=== PATIENT | female | born 1985 | race Caucasian/White ===

== ENCOUNTER 2017-11-24 21:00 | Emergency (ER) | payer BC, SELFPAY ==
[2017-11-24 21:00] VITALS: BP 91/64; PULSE 109; RESP 14; TEMP 36.8; O2SAT 97; BMI 24.8
--- NOTE | 2017-11-24 21:24 | EKG12_ITS ---
Test Reason : DEHYDRATION Blood Pressure : / mmHG Vent. Rate : 082 BPM Atrial Rate : 082 BPM P-R Int : 112 ms QRS Dur : 090 ms QT Int : 368 ms P-R-T Axes : 038 056 046 degrees QTc Int : 429 ms Normal sinus rhythm Nonspecific ST segment abnormality Confirmed by ANÍBAL MEDINA, SUNI ([id number]), editorial clerk RAMESH YOON ([id number] on 11/28/2017 1:11:25 PM Referred By: EMY Confirmed By:SUNI SPANGLER MD
[2017-11-24 21:32] VITALS: BP 102/67; BP 97/68; BP 99/66; PULSE 111; PULSE 86; PULSE 94
[2017-11-24] MEDS: proMETHazine 25 MG/ML Syringe 12.5 MG IV (21:42)
[2017-11-24] MEDS: 0.9% Normal Saline 1,000 ML 1000 ML IV ×2 (21:42)
--- NOTE | 2017-11-24 21:43 | ED.RN ---
NO OLD EKG'S IN MUSE
[2017-11-24 22:05] LABS: Absolute Lymphocyte Count 0.38 X10^3/ul (0.83-4.51); Absolute Neutrophil Count 6.9 X10^3/uL (2.0-7.7); Basophil# 0.01 X10^3/uL; Basophil% 0.1 % (0-1); Eosinophil# 0.04 X10^3/uL; Eosinophils% 0.5 % (0-5); Hematocrit 41.6 % (37-47); Hemoglobin 13.7 g/dl (12.0-15.0); Lymphocyte # 0.38 X10^3/ul (4.0); Lymphocyte % 5.1 % (19-41); Mean Corp Hgb Conc 32.9 g/gl (32-36); Mean Corpuscular Hgb 29.8 pg (27.0-32.0); Mean Corpuscular Volume 90.4 fL (81-99); Monocyte# 0.22 X10^3/uL; Monocyte% 2.9 % (0-10); Neutrophil # 6.87 X10^3/uL (2.7-7.7); Neutrophil % 91.4 % (47-70); POSITIVE COUNT NO; POSITIVE DIFFERENTIAL YES; Platelet Count 188 K/mm3 (150-450); RBC Distribution Width CV 12.5 % (11.6-14.6); RBC Distribution Width SD 41.4 fl (35.1-43.9); White Blood Count 7.5 K/mm3 (4.4-11.0)
[2017-11-24 22:06] LABS: Differential Indicated SCAN CRITERIA MET; POSITIVE MORPHOLOGY NO
[2017-11-24 22:09] VITALS: TEMP 37
[2017-11-24 22:09] LABS: Anion Gap 6 (5-15); BUN 9 mg/dL (7-18); BUN/Creat Ratio 10.1 RATIO (10-20); Calcium,Total 8.7 mg/dL (8.5-10.1); Chloride 103 mmol/L (98-107); Creatinine, Serum 0.89 mg/dL (0.55-1.02); EST Glomerular Filtration Rate 78 mL/min (>60); Est Glom Filt Rate - Afr Amer 94 mL/min (>60); Estimated Creatinine Clearance 87.43 ml/min; Glucose 152 mg/dL (74-106); Potassium 3.7 mmol/L (3.5-5.1); Sodium Level 135 mmol/L (136-145)
[2017-11-24 22:23] LABS: Pregnancy, Serum, hCG Quali. NEGATIVE Negative (0-9 Nonpreg)
--- NOTE | 2017-11-24 23:09 | ED.VISSUMM ---
- ER Visit Summary Date of Service: 11/24/17 Chief Complaint: Nausea, diarrhea History of Present Illness: The patient is a 32 F who presents with nausea and diarrhea. She has been ill for about 12 hours. She reports 5 episodes of diarrhea during that time. She reports nausea without vomiting. She complains of intermittent mild diffuse abdominal cramping although she has no pain currently at the time of history. She also complains of muscle aches joint aches and chills although not documented fevers. She denies chest pain shortness of breath cough vomiting. Physical Examination: Initial blood pressure 91/64 heart rate 109 vitals otherwise normal Moist mucous members Heart regular rhythm slightly tachycardic Lungs are clear Abdomen soft nondistended she has some mild diffuse tenderness but no guarding no rebound she does not appear to have a surgical abdomen Alert Test Results: EKG shows sinus rhythm at a rate of 82. CBC BMP normal. negative. Orthostatic vital signs were positive. Emergency Department Course and Treatment: Patient was treated with 2 L of IV fluids and Phenergan. On reevaluation she reports a dramatic improvement. Her nausea is improved. Her heart rate is normal. She was able to ambulate to the bathroom without assistance. I do believe this is most likely related to a viral syndrome. She was advised to follow-up with her primary care physician. She understands to return for new or worsening symptoms and was instructed on specific signs and symptoms to monitor for and she was discharged home. Treatment Plan: [] Disposition: Discharge Impression: Diarrhea Myalgias Nausea This note was generated with [employer] dictation software. It may contain incorrect words, spelling, and punctuation that were not noted in review of the chart prior to signing ED Disposition - Plan for ED Patient: Chief Complaint: Nausea/Vomiting/Diarrhea Referrals: Sae Bolton DO [Primary Care Provider] -
--- NOTE | 2017-11-24 23:11 | ED.DEP ---
ED Disposition - Plan for ED Patient: Chief Complaint: Nausea/Vomiting/Diarrhea Instructions: ED Food Poison Or Gastroenteritis Prescriptions: Ondansetron [Zofran Odt] 4 mg PO Q8H PRN PRN #10 tab PRN Reason: Nausea Referrals: Sae Bolton DO [Primary Care Provider] -
[2017-11-24 23:21] VITALS: BP 98/60; PULSE 71; RESP 16; O2SAT 100
[2017-11-24] MEDS: Ondansetron ODT 4 MG Tablet PO (23:41)
== END 2017-11-24 23:23 | disposition home or self-care (01) ==
LOC: ED 21:36
PROVIDERS: Emergency Provider Emergency Medicine; Family Provider Student in an Organized Health Care Education/Training Program; PCP Student in an Organized Health Care Education/Training Program
DX: R19.7 Diarrhea, unspecified (principal); R11.0 Nausea; R10.9 Unspecified abdominal pain; M79.1 Myalgia; L40.9 Psoriasis, unspecified
CPT/HCPCS: 80048; 84703; 85025; 93005; 96361; 96374; 99284; J7030; A4216

== ENCOUNTER → 2018-01-29 15:42 | Outpatient (CLI) | payer BC, SELFPAY | PROVIDERS: Family Provider Student in an Organized Health Care Education/Training Program; PCP Student in an Organized Health Care Education/Training Program; Referring Provider Otolaryngology Otolaryngology/Facial Plastic Surgery; Visit Provider Otolaryngology Otolaryngology/Facial Plastic Surgery | DX: J02.9 Acute pharyngitis, unspecified (principal) | CPT/HCPCS: 87070 ==

== ENCOUNTER → 2018-03-31 14:34 | Outpatient (CLI) | payer BC, SELFPAY ==
--- OUTSIDE RECORDS SUMMARY | 2018-05-27 06:25 | XMS RPT_ITS ---
:1985 Author Organization OHIP Care Team Providers Name Role Phone REBECCA GOETZ ([facility]) Attending Unavailable SAE TA Attending Unavailable DOCTOR, OUT OF TOWN Attending Unavailable Yuval Roberts Primary Care Unavailable Devin Pedroza Attending Unavailable Sae Ta Primary Care Unavailable Maco Tom Attending Unavailable Maco Tom Referring Unavailable Sae Ta Primary Care Unavailable Mychal Steen Attending Unavailable PROBLEMS PROBLEMS DATE TYPE CONDITION / CODE ATTENDING STATUS SOURCE 03/31/2018 Unknown Z12.4 - Mychal Steen Encounter for Community screening for Hospital malignant Repository neoplasm of cervix / Z12.4(ICD-10) PROCEDURES PROCEDURES No Procedure Records FoundRESULTS RESULTS PAP I-G HPV HI Collected: 03/31/2018 Status: F Source: YAN RISK 10:10 AM [facility] REPOSITORY Order Comment: CYTOLOGY INFORMATION: - CLINICAL INFORMATION: - DATE LMP/MENOPAUSE: 03/03/18 LMP - COLLECTION VIAL: Thin Prep Vial - ASSISTED LIVING COORDINATOR SOURCE: CERVICAL/ENDOCERVICAL - COLLECTION TECHNIQUE: BRUSH/SPATULA TYPE CODE TESTS RESULT OUT OF RANGE REFERENCE UNITS LAB L7400.0800 Normal DIAGN Result Comment: EPITHELIAL CELL ABNORMALITY. ATYPICAL SQUAMOUS CELLS OF UNDETERMINED SIGNIFICANCE LAB L7400.0900 Normal ADEQ Result Comment: Satisfactory for evaluation. Endocervical and/or squamous metaplastic cells (endocervical component) are present. LAB L7400.0940 Normal CLIN PROV. R87.610 ICD9 LAB L7400.1300 Normal RECOMM Result Comment: Suggest follow up as clinically appropriate. LAB L7400.1400 Normal PERFORM Result Comment: Performed by Janiya Gonzalez, Supervisory Independent Producer (ASCP) Electronically signed by Suraj Weaver MD, Pathologist LAB L7400.2575 Normal TEST METHOD Result Comment: This liquid based ThinPrep(R) pap test was screened with the use of an image guided system. LAB L7400.2600 Normal COMM Result Comment: The pap smear is a screening test designated to aid in the detection of pre-malignant and malignant conditions of the uterine cervix. It is not a diagnostic procedure and should not be used as the sole means of detecting cervical cancer. Both false-positive and false-negative reports do occur. LAB L7400.2950 Normal HPV HC,HGH RISK Result Comment: Low sample cellularity may be the cause. See HPV, low volume rfx test result. This high-risk HPV test detects thirteen high-risk types (16/18/31/33/35/39/45/51/52/56/58/59/68) without differentiation. HPV, high-risk The quantity of specimen remaining in the vial after Pap slide preparation was less than the 4 mL minimum cell suspension required. HPV, low volume rfx Negative Performed By: #### L7400.0375 #### [facility] (refer to report for specific site) refer to report for address and phone number PROGRESS Observed: 03/25/2018 Status: COMPLETED Source: [place] 10:15 AM [facility] REPOSITORY HNO ID: [id number] Author: Sae Ta Service: (none) Author Type: Physician Type: Progress Notes Filed: 03/25/2018 11:19 AM Note Text: CC: Alanna Yusuf is a 32 year old female who presents to the office for physical HPI: Overall is doing well, Feels as if she is struggling somewhat with anxiety symptoms, comes and goes, depending on the trigger. Is working on self reflection with this, has been in talk therapy in the past with improvement as well, is considering restarting this. Not really interested in medications, denies depression or irritability or sleep or appetite changes. Overall tries to eat a very healthy diet and exercises regularly to help with mgmt of symptoms as well. PAST MEDICAL HISTORY Diagnosis Date - Environmental allergies - Psoriasis - Syncope 2003, 2010,2013 Blacked out at work while sitting at desk. PAST SURGICAL HISTORY Procedure Laterality Date - COLONOSCOP W/ OR W/O [facility] SPEC 02/24/2017 biopsies negative - REMOVE TONSILS/ADENOIDS,<12 Y/O 2003 Social History: Social History Substance Use Topics - Smoking status: Never Smoker - Smokeless tobacco: Never Used - Alcohol use No FAMILY HISTORY Problem Relation Age of Onset - None Mother - Cancer Father 33 Hodgkins - other (healthy) Daughter - other (healthy) Son Current Outpatient prescriptions: Drospirenone-Ethinyl Estradiol (BALDOMERO 28) 3-0.02 mg per tablet Take 1 tablet by mouth once daily. prednisoLONE Sodium Phosphate 20 mg/5 mL (4 mg/mL) soln Take 10-40 mg by mouth as directed. 40mg daily for 3 days, then 20mg daily for 3 days then 10 mg daily for 3 days MULTIVITAMIN TAB Take one(1) tablet daily. vitamins ibuprofen (MOTRIN) 200 mg tablet Take 200 mg by mouth every 6 hours as needed. Allergies: ALLERGIES Allergen Reactions - Amoxicillin Hives - Augmentin [Amoxicil* Hives - Azithromycin Diarrhea GENERIC ONLY - Ceclor [Cefaclor] Hives ROS: See HPI PE: 03/25/18 1009 BP: 116/80 Pulse: 80 Resp: 16 Temp: 36.1 ?C (97 ?F) TempSrc: Left Tympanic Weight: 71.7 kg (158 lb) Height: 170.2 cm (5' 7) Gen: AANDO, NAD, non-toxic appearing, Pleasant, cooperative HEENT: NT/AC, PERRLA, EOMs intact b/l, nares clear and patent b/l, pharynx without erythema, exudate or lesions. Uvula midline. EACs without erythema or debris. TMs pearly montaño with intact landmarks b/l. Neck: supple, No cervical LAD, no thyromegaly, no carotid bruits CV: RRR, normal S1 and S2, no murmurs, no gallops, no rubs, Pulses 2+ and symmetric in UE and LE b/l Lungs: normal respiratory effort, CTA b/l, no wheezing or rhonchi or rales Abd: soft, NT, ND, +BS, no hepatosplenomegaly MS: FROM all 4 extremities Neuro: CN II-XII intact b/l, strength 5/5 b/l UE and LE, DTRs 2/4 UE and LE, sensation intact. Skin: warm, dry, intact, scattered mild psoriasis. ASSESSMENT/PLAN: 1. Well adult exam - ICD9: V70.0, ICD10: Z00.00 (primary diagnosis) - Encouraged monthly Breast Self Exam - Recommended calcium intake with supplements or by diet (goal of 8847-3032 mg/day - Follow up for annual exam in one year. - VITAMIN D 25 HYDROXY - TSH BLD - CBC - COMP METABOLIC PANEL - C-REACTIVE PROTEIN (CRP) 2. Anxiety - ICD9: 300.00, ICD10: F41.9 - given GHULAM 7 scale today, given resources locally for therapy/counseling to consider, she is possibly interested in Valerian root supplement etc. Sae Ta DO To ER if develops chest pain, shortness of breath, or severe worsening of symptoms. Discussed risks, benefits, alternatives, and potential side effects of medications. Patient expressed understanding and agreed with the plan. Sae Ta DO [address] [place] [address] GEORGETTE Observed: 03/25/2018 Status: COMPLETED Source: [place]ERNARD 10:00 AM [facility] REPOSITORY Office Visit (FAMPWS) ALANNA YUSUF ([id number]) 1985 F Date Time Provider Department 03/25/18 10:00 AM SAE TA During your visit today, we recorded the following information about you: Temperature Pulse Respiration Blood pressure 97 degrees 80/minute 16/minute 116/80 Weight Height Last Period 71.7 kg 1.702 m 03/04/18 Sae Ta DO 03/25/2018 11:19 AM Signed CC: Alanna Yusuf is a 32 year old female who presents to the office for physical HPI: Overall is doing well, Feels as if she is struggling somewhat with anxiety symptoms, comes and goes, depending on the trigger. Is working on self reflection with this, has been in talk therapy in the past with improvement as well, is considering restarting this. Not really interested in medications, denies depression or irritability or sleep or appetite changes. Overall tries to eat a very healthy diet and exercises regularly to help with mgmt of symptoms as well. PAST MEDICAL HISTORY Diagnosis Date - Environmental allergies - Psoriasis - Syncope 2003, 2010,2013 Blacked out at work while sitting at desk. PAST SURGICAL HISTORY Procedure Laterality Date - COLONOSCOP W/ OR W/O [facility] SPEC 02/24/2017 biopsies negative - REMOVE TONSILS/ADENOIDS,<12 Y/O 2003 Social History: Social History Substance Use Topics - Smoking status: Never Smoker - Smokeless tobacco: Never Used - Alcohol use No FAMILY HISTORY Problem Relation Age of Onset - None Mother - Cancer Father 33 Hodgkins - other (healthy) Daughter - other (healthy) Son Current Outpatient prescriptions: Drospirenone-Ethinyl Estradiol (BALDOMERO 28) 3-0.02 mg per tablet Take 1 tablet by mouth once daily. prednisoLONE Sodium Phosphate 20 mg/5 mL (4 mg/mL) soln Take 10-40 mg by mouth as directed. 40mg daily for 3 days, then 20mg daily for 3 days then 10 mg daily for 3 days MULTIVITAMIN TAB Take one(1) tablet daily. vitamins ibuprofen (MOTRIN) 200 mg tablet Take 200 mg by mouth every 6 hours as needed. Allergies: ALLERGIES Allergen Reactions - Amoxicillin Hives - Augmentin [Amoxicil* Hives - Azithromycin Diarrhea GENERIC ONLY - Ceclor [Cefaclor] Hives ROS: See HPI PE: 03/25/18 1009 BP: 116/80 Pulse: 80 Resp: 16 Temp: 36.1 ?C (97 ?F) TempSrc: Left Tympanic Weight: 71.7 kg (158 lb) Height: 170.2 cm (5' 7) Gen: AANDO, NAD, non-toxic appearing, Pleasant, cooperative HEENT: NT/AC, PERRLA, EOMs intact b/l, nares clear and patent b/l, pharynx without erythema, exudate or lesions. Uvula midline. EACs without erythema or debris. TMs pearly montaño with intact landmarks b/l. Neck: supple, No cervical LAD, no thyromegaly, no carotid bruits CV: RRR, normal S1 and S2, no murmurs, no gallops, no rubs, Pulses 2+ and symmetric in UE and LE b/l Lungs: normal respiratory effort, CTA b/l, no wheezing or rhonchi or rales Abd: soft, NT, ND, +BS, no hepatosplenomegaly MS: FROM all 4 extremities Neuro: CN II-XII intact b/l, strength 5/5 b/l UE and LE, DTRs 2/4 UE and LE, sensation intact. Skin: warm, dry, intact, scattered mild psoriasis. ASSESSMENT/PLAN: 1. Well adult exam - ICD9: V70.0, ICD10: Z00.00 (primary diagnosis) - Encouraged monthly Breast Self Exam - Recommended calcium intake with supplements or by diet (goal of 5090-3355 mg/day - Follow up for annual exam in one year. - VITAMIN D 25 HYDROXY - TSH BLD - CBC - COMP METABOLIC PANEL - C-REACTIVE PROTEIN (CRP) 2. Anxiety - ICD9: 300.00, ICD10: F41.9 - given GHULAM 7 scale today, given resources locally for therapy/counseling to consider, she is possibly interested in Valerian root supplement etc. Sae Ta DO To ER if develops chest pain, shortness of breath, or severe worsening of symptoms. Discussed risks, benefits, alternatives, and potential side effects of medications. Patient expressed understanding and agreed with the plan. Sae Ta DO [address] [place] [address] Sae Ortega Ta, 03/25/2018 10:57 AM Signed Light box 10,000 LUX strength, pineal gland/amygdala for mood, 20-30 minutes a day in the morning [employer], 400-800 mg a day in the evening. Referring Provider: SELF [200] Allergies As of Date: 03/25/2018 Noted Allergy Reaction AMOXICILLIN 04/30/2005 4 - Hives AUGMENTIN (AMOXICILLIN-POT CLAVUL*04/30/2005 4 - Hives AZITHROMYCIN 07/02/2014 6 - Diarrhea Comments: GENERIC ONLY CECLOR (CEFACLOR) 05/02/2005 4 - Hives Date Reviewed: 03/25/2018 Reviewed by: Syl Joseph LPN - Fully Assessed Reason for Visit: Physical [83] Primary Visit Diagnosis:Well adult exam [Z00.00] Other Visit Diagnosis:Anxiety [F41.9] Order(s):VITAMIN D 25 HYDROXY [SQVITD] Order #: [id number] FUTURE TSH BLD [SQTSH] Order #: [id number] FUTURE CBC [SQCBC] Order #: [id number] FUTURE COMP METABOLIC PANEL [SQCMP] Order #: [id number] FUTURE C-REACTIVE PROTEIN (CRP) [SQCRP] Order #: [id number] FUTURE Prescriptions as of 03/25/2018 Sig: DROSPIRENONE 3 MG-ETHINYL EST* Take 1 tablet by mouth once d* PREDNISOLONE SODIUM PHOSPHATE* Take 10-40 mg by mouth as dir* MULTIVITAMIN TABLET Take one(1) tablet daily. Pr* IBUPROFEN 200 MG TABLET Take 200 mg by mouth every 6 * Problem List As Of Date 03/25/2018 Noted Resolved Abdominal pain, unspecified site [R10.9] INVALID FOR*04/30/2012 Bright red rectal bleeding [K62.5] INVALID FOR* More... Altered bowel habits [R19.4] INVALID FOR* More... Gluten intolerance [K90.41] INVALID FOR* Thyromegaly [E01.0] INVALID FOR* Well adult exam [Z00.00] INVALID FOR* Anxiety [F41.9] INVALID FOR* Other instructions from your clinician: Light box 10,000 LUX strength, pineal gland/amygdala for mood, 20-30 minutes a day in the morning Valerian root, [employer] store, 400-800 mg a day in the evening. Encounter Status:Closed by SAE TA DO on 03/25/18 PROGRESS Observed: 02/19/2018 Status: COMPLETED Source: [place] 9:32 AM [facility] REPOSITORY HNO ID: [id number] Author: Rebecca Ortega (Miko) Sofy Service: (none) Author Type: Nurse Practitioner Type: Progress Notes Filed: 02/19/2018 9:44 AM Note Text: HPI/CC: Alanna Yusuf is a 32 year old female who presents for Arm Pain (L arm pain since receiving flu shot on 01/31). Pain radiating down left arm, tenderness to injection site and surrounding skin. Injection site is discolored- no erythema, slightly edematous. Denies fevers, chills, difficulty swallowing, difficulty breathing, redness, warmth to palpation, numbness or tingling. Attempted NSAIDs with some relief. ROS as above, otherwise non-contributory. Reviewed PMHx, PSHx, social Hx, medications and allergies. PHYSICAL EXAMINATION: Blood pressure 92/62, pulse 64, resp. rate 16, weight 73.5 kg (162 lb). General appearance: Well appearing, alert, in no acute distress, well-hydrated, well nourished. Skin: Skin color, texture, turgor normal, no suspicious rashes or lesions Extremities: Positive findings: right UE with TTP at and around injection site, slight edema, no warmth or erythema noted. ASSESSMENT/PLAN: 1. Allergic reaction, initial encounter - ICD9: 995.3, ICD10: T78.40XA - PREDNISOLONE SODIUM PHOSPHATE 20 MG/5 ML (4 MG/ML) ORAL SOLUTION - allergy consult Rebecca Goetz APRN.CNP CNOV Observed: 02/19/2018 Status: COMPLETED Source: [place] 9:20 AM [facility] REPOSITORY Office Visit (FAMPWS) ALANNA YUUSF ([id number]) 1985 F Date Time Provider Department 02/19/18 9:20 AM REBECCA GOETZ (MIKO) ALY During your visit today, we recorded the following information about you: Pulse Respiration Blood pressure Weight 64/minute 16/minute 92/62 73.5 kg Rebecca Goetz APRN.CNP 02/19/2018 9:44 AM Signed HPI/CC: Alanna Yusuf is a 32 year old female who presents for Arm Pain (L arm pain since receiving flu shot on 01/31). Pain radiating down left arm, tenderness to injection site and surrounding skin. Injection site is discolored- no erythema, slightly edematous. Denies fevers, chills, difficulty swallowing, difficulty breathing, redness, warmth to palpation, numbness or tingling. Attempted NSAIDs with some relief. ROS as above, otherwise non-contributory. Reviewed PMHx, PSHx, social Hx, medications and allergies. PHYSICAL EXAMINATION: Blood pressure 92/62, pulse 64, resp. rate 16, weight 73.5 kg (162 lb). General appearance: Well appearing, alert, in no acute distress, well-hydrated, well nourished. Skin: Skin color, texture, turgor normal, no suspicious rashes or lesions Extremities: Positive findings: right UE with TTP at and around injection site, slight edema, no warmth or erythema noted. ASSESSMENT/PLAN: 1. Allergic reaction, initial encounter - ICD9: 995.3, ICD10: T78.40XA - PREDNISOLONE SODIUM PHOSPHATE 20 MG/5 ML (4 MG/ML) ORAL SOLUTION - allergy consult Rebecca Goetz APRN.CNP Referring Provider: SELF [200] Allergies As of Date: 02/19/2018 Noted Allergy Reaction AMOXICILLIN 04/30/2005 4 - Hives AUGMENTIN (AMOXICILLIN-POT CLAVUL*04/30/2005 4 - Hives AZITHROMYCIN 07/02/2014 6 - Diarrhea Comments: GENERIC ONLY CECLOR (CEFACLOR) 05/02/2005 4 - Hives Date Reviewed: 02/19/2018 Reviewed by: Suraj Roy LPN - Fully Assessed Reason for Visit: Arm Pain [137] Cmt: L arm pain since receiving flu shot on 01/31 Reason For Visit History Recorded Primary Visit Diagnosis:Allergic reaction, initial encounter [T78.40XA] Order(s):prednisoLONE Sodium Phosphate 20 mg/5 mL (4 mg/mL) solnTake 10-40 mg by mouth as directed. 40mg daily for 3 days, then 20mg daily for 3 days then 10 mg daily for 3 daysDisp: 110 mLRfl: 0 CONSULT TO ALLERGY/IMMUNOLOGY [9001] Order #: [id number]: 1 Prescriptions as of 02/19/2018 Sig: DROSPIRENONE 3 MG-ETHINYL EST* Take 1 tablet by mouth once d* IBUPROFEN 200 MG TABLET Take 200 mg by mouth every 6 * MULTIVITAMIN TABLET Take one(1) tablet daily. Pr* PREDNISOLONE SODIUM PHOSPHATE* Take 10-40 mg by mouth as dir* Problem List As Of Date 02/19/2018 Noted Resolved Abdominal pain, unspecified site [R10.9] INVALID FOR*04/30/2012 Bright red rectal bleeding [K62.5] INVALID FOR* More... Altered bowel habits [R19.4] INVALID FOR* More... Gluten intolerance [K90.41] INVALID FOR* Thyromegaly [E01.0] INVALID FOR* Well adult exam [Z00.00] INVALID FOR* Prescriptions ordered this encounter Disp Refills Start End PREDNISOLONE SODIUM PHOSPHATE 20 MG/* 110 * 0 02/19/2018 Route: ORAL Sig: Take 10-40 mg by mouth as directed. 40mg daily for 3 days, then 20mg daily for 3 days then 10 mg daily for 3 days Encounter Status:Closed by REBECCA GOETZ CNP on 02/19/18 PROGRESS Observed: 01/31/2018 Status: COMPLETED Source: [place] 11:01 AM [facility] REPOSITORY O ID: [id number] Author: Jim Moralez LPN Service: (none) Author Type: (none) Type: Progress Notes Filed: 01/31/2018 11:02 AM Note Text: 32 year old female here for INACTIVATED INFLUENZA VACCINE. 8889-1372 Season Patient is identified by name and date of : Yes [] CONTRAINDICATIONS color enhanced section Age less than 6 months? No Allergy to eggs, chicken, chicken feathers, or chicken dander? No Allergy to thimerosal (a preservative) or formaldehyde, gelatin? No History of severe reaction to any vaccine component or a previous dose of influenza vaccination? No History of Guillain-Rapelje Syndrome within 6 weeks after a previous influenza vaccine? No Patient is not moderately or severely ill? No Current temperature greater or equal to 100.4F? No History of Bone Marrow Transplant prior 6 months or solid organ transplant in the past 3 months ? No History of fainting after a prior injection or medical procedure? No- ? If patient has fainted in the past, the CDC recommends sitting or lying down for 15 minutes after the vaccination. [] VERIFICATION color enhanced section Was the answer Yes for any of the above contraindications? No contraindications present. Acceptable to proceed with vaccine. Patient/guardian agrees the above answers are true to the best of their knowledge? Yes Flu vaccine information sheet given? Yes See immunization activity in [facility] for details of immunizations adminstered today. Patient age: [age] year old For The 7972-5674 Flu Season 6-35 months old: Fluzone 0.25 ml - IM (Preservative Free) 3 years of age: Fluzone 0.5 ml - IM (Preservative Free) 3 years and older: Fluzone 0.5 ml- IM-(with Preservatives) 65+ years old: 2-49 years old Fluzone High-Dose 0.5 ml - IM (Preservative Free) FLUMIST- intranasal REMEMBER: If patient is less than 9 years of age and this is the first vaccine of Influenza to be received in any flu season, they should receive a second dose in one months time. CNNURSE Observed: 01/31/2018 Status: COMPLETED Source: [place]MA[place] 10:50 AM [facility] REPOSITORY Nurse Visit (CORWST) MALATHIALANNA Cohen ([id number]) 1985 F Date Time Provider Department 01/31/18 10:50 AM [facility] During your visit today, we recorded the following information about you: Jim Moralez ROXY 01/31/2018 11:02 AM Signed 32 year old female here for INACTIVATED INFLUENZA VACCINE. 7212-4408 Season Patient is identified by name and date of : Yes [] CONTRAINDICATIONS color enhanced section Age less than 6 months? No Allergy to eggs, chicken, chicken feathers, or chicken dander? No Allergy to thimerosal (a preservative) or formaldehyde, gelatin? No History of severe reaction to any vaccine component or a previous dose of influenza vaccination? No History of Guillain-Rapelje Syndrome within 6 weeks after a previous influenza vaccine? No Patient is not moderately or severely ill? No Current temperature greater or equal to 100.4F? No History of Bone Marrow Transplant prior 6 months or solid organ transplant in the past 3 months ? No History of fainting after a prior injection or medical procedure? No- ? If patient has fainted in the past, the CDC recommends sitting or lying down for 15 minutes after the vaccination. [] VERIFICATION color enhanced section Was the answer Yes for any of the above contraindications? No contraindications present. Acceptable to proceed with vaccine. Patient/guardian agrees the above answers are true to the best of their knowledge? Yes Flu vaccine information sheet given? Yes See immunization activity in [facility] for details of immunizations adminstered today. Patient age: [age] year old For The 2763-8359 Flu Season 6-35 months old: Fluzone 0.25 ml - IM (Preservative Free) 3 years of age: Fluzone 0.5 ml - IM (Preservative Free) 3 years and older: Fluzone 0.5 ml- IM-(with Preservatives) 65+ years old: 2-49 years old Fluzone High-Dose 0.5 ml - IM (Preservative Free) FLUMIST- intranasal REMEMBER: If patient is less than 9 years of age and this is the first vaccine of Influenza to be received in any flu season, they should receive a second dose in one months time. Referring Provider: SELF [200] Allergies As of Date: 01/31/2018 Noted Allergy Reaction AMOXICILLIN 04/30/2005 4 - Hives AUGMENTIN (AMOXICILLIN-POT CLAVUL*04/30/2005 4 - Hives AZITHROMYCIN 07/02/2014 6 - Diarrhea Comments: GENERIC ONLY CECLOR (CEFACLOR) 05/02/2005 4 - Hives Date Reviewed: 07/10/2017 Reviewed by: Kavita ([facility]) ANDREA Xiong.SCHOOL GUIDANCE COUNSELOR - Fully Assessed Reason for Visit: Imm/Inj [58] Cmt: Flu Vaccine Primary Visit Diagnosis:Need for vaccination [Z23] Order(s):INFLUENZA VACCINE QUADRIVALENT AGE 3 YRS PLUS + IM [[id number]] Order #: [id number] Prescriptions as of 01/31/2018 Sig: IBUPROFEN 200 MG TABLET Take 200 mg by mouth every 6 * MULTIVITAMIN TABLET Take one(1) tablet daily. Pr* Problem List As Of Date 01/31/2018 Noted Resolved Abdominal pain, unspecified site [R10.9] INVALID FOR*04/30/2012 Bright red rectal bleeding [K62.5] INVALID FOR* More... Altered bowel habits [R19.4] INVALID FOR* More... Gluten intolerance [K90.41] INVALID FOR* Thyromegaly [E01.0] INVALID FOR* Well adult exam [Z00.00] INVALID FOR* Encounter Status:Closed by JIM MORALEZ LPN on 01/31/18 Observed: 01/29/2018 Status: F Source: YAN CULTURE, THROAT 11:00 AM [facility] REPOSITORY Culture, Throat Mixed normal throat amada. No Haemophilus, Streptococcus pneumoniae, beta-hemolytic Streptococcus or Staphylococcus aureus isolated. Performed By: #### M100.1000 #### [facility] [address] [place], [address] 12 LEAD ELECTROCARDIOGRAM Observed: 11/28/2017 Status: F Source: YAN 1:11 PM [facility] Cardiovascular Services [address] [place] [address] 12 Lead EKG 11/24/17 2144 MR#: [id number] Acct: [id number] Name: ALANNA YUSUF Rep #: [id number] : 1985 32 From: Bobby Spangler MD Attending Dr: Status: DEP ER Ordering Dr: Devin Pedroza MD Date: 11/24/17 Location: ED Sex: F C Admitted: Test Reason : DEHYDRATION Blood Pressure : / mmHG Vent. Rate : 082 BPM Atrial Rate : 082 BPM P-R Int : 112 ms QRS Dur : 090 ms QT Int : 368 ms P-R-T Axes : 038 056 046 degrees QTc Int : 429 ms Normal sinus rhythm Nonspecific ST segment abnormality Confirmed by ANÍBAL MEDINA, BOBBY ([id number]), senior technical editor RAMESH YOON ([id number]) on 11/28/2017 1:11:25 PM Referred By: EMY Confirmed By:BOBBY SPANGLER MD 11/28/17 1311 Date Bobby Spangler MD CC: Sae Chew DO; Devin Pedroza MD Signed DISCHARGE INSTRUCTION Observed: 11/24/2017 Status: F Source: YAN 11:12 PM [facility] Medical Records Department [address] [place] [address] Discharge Instruction 11/24/17 2311 MR#: [id number] Acct: [id number] Name: ALANNA YUSUF Rep #: [id number] : 1985 32 From: Devin Pedroza MD PCP: Sae Chew DO Status: REG ER ED Disposition - Plan for ED Patient: Chief Complaint: Nausea/Vomiting/Diarrhea Instructions: ED Food Poison Or Gastroenteritis Prescriptions: Ondansetron [Zofran Odt] 4 mg PO Q8H PRN PRN #10 tab PRN Reason: Nausea Referrals: Sae Ta DO [Primary Care Provider] - What to do if you have Problems For any increased pain, shortness of breath, bleeding, nausea or vomiting, chest pain, or any unexpected problems, contact your Primary Care Provider. Call [facility] ([phone]) or report to the closest Emergency Room. Call 911 if necessary. 11/24/17 2312 <Electronically signed by Devin Pedroza MD> Date Devin Pedroza MD Cosigner Signature (If Indicated): Date CC: Sae Chew DO EMERGENCY DEPARTMENT Observed: 11/24/2017 Status: F Source: [place] SUMMARY 11:11 PM [facility] REPOSITORY [facility] Medical Records Department [address] [place] [address] Emergency Department Summary 11/24/17 2309 MR#: [id number] Acct: [id number] Name: ALANNA YUSUF Rep #: [id number] : 1985 32 From: Devin Pedroza MD PCP: Sae Chew DO Status: REG ER - ER Visit Summary Date of Service: 11/24/17 Chief Complaint: Nausea, diarrhea History of Present Illness: The patient is a 32 F who presents with nausea and diarrhea. She has been ill for about 12 hours. She reports 5 episodes of diarrhea during that time. She reports nausea without vomiting. She complains of intermittent mild diffuse abdominal cramping although she has no pain currently at the time of history. She also complains of muscle aches joint aches and chills although not documented fevers. She denies chest pain shortness of breath cough vomiting. Physical Examination: Initial blood pressure 91/64 heart rate 109 vitals otherwise normal Moist mucous members Heart regular rhythm slightly tachycardic Lungs are clear Abdomen soft nondistended she has some mild diffuse tenderness but no guarding no rebound she does not appear to have a surgical abdomen Alert Test Results: EKG shows sinus rhythm at a rate of 82. CBC BMP normal. negative. Orthostatic vital signs were positive. Emergency Department Course and Treatment: Patient was treated with 2 L of IV fluids and Phenergan. On reevaluation she reports a dramatic improvement. Her nausea is improved. Her heart rate is normal. She was able to ambulate to the bathroom without assistance. I do believe this is most likely related to a viral syndrome. She was advised to follow-up with her primary care physician. She understands to return for new or worsening symptoms and was instructed on specific signs and symptoms to monitor for and she was discharged home. Treatment Plan: [] Disposition: Discharge Impression: Diarrhea Myalgias Nausea This note was generated with Clarassance dictation software. It may contain incorrect words, spelling, and punctuation that were not noted in review of the chart prior to signing ED Disposition - Plan for ED Patient: Chief Complaint: Nausea/Vomiting/Diarrhea Referrals: Sae Ta, DO [Primary Care Provider] - What to do if you have Problems For any increased pain, shortness of breath, bleeding, nausea or vomiting, chest pain, or any unexpected problems, contact your Primary Care Provider. Call [facility] ([phone]) or report to the closest Emergency Room. Call 911 if necessary. 11/24/17 2311 <Electronically signed by Devin Pedroza MD> Date Devin Pedroza MD Cosigner Signature (If Indicated): Date CC: Sae Garison, DO CBC W/DIFF, AUTOMATED Collected: 11/24/2017 Status: F Source: YAN 9:40 PM [facility] REPOSITORY TYPE CODE TESTS RESULT OUT OF RANGE REFERENCE UNITS LAB L100.1000 4.4-11.0 K/mm3 Normal WBC 7.5 LAB L100.1200 4.2-5.4 M/mm3 Normal RBC 4.60 LAB L100.1300 12.0-15.0 g/dl Normal HGB 13.7 LAB L100.1400 37-47 % Normal HCT 41.6 LAB L100.1500 81-99 fL Normal MCV 90.4 LAB L100.1600 27.0-32.0 pg Normal MCH 29.8 LAB L100.1700 32-36 g/gl Normal MCHC 32.9 LAB L100.1810 11.6-14.6 % Normal RDW CV 12.5 LAB L100.1820 35.1-43.9 fl Normal RDW SD 41.4 LAB L100.1900 150-450 K/mm3 Normal PLT 188 LAB L100.2000 6.2-12.0 fl Normal MPV 10.0 LAB L100.2100 47-70 % High NEUT% 91.4 LAB L100.2200 19-41 % Low LY% 5.1 LAB L100.2300 0-10 % Normal MONO% 2.9 LAB L100.2400 0-5 % Normal EO% 0.5 LAB L100.2500 0-1 % Normal BASO% 0.1 LAB L100.2550 0.0-0.9 % Normal IM GRAN % 0.000 Result Comment: IG% - Immature Granulocytes (promyelocytes, myelocytes and metamyelocytes) > 1% indicates that a LEFT SHIFT is Present. LAB L100.2620 2.0-7.7 X10 3/uL Normal Absolute Neut 6.9 LAB L100.2720 0.83-4.51 X10 3/ul Low Absolute Lymph 0.38 Performed By: #### L100.0100 #### [facility] [address] [place], [address] BASIC METABOLIC Collected: 11/24/2017 Status: F Source: YAN PROFILE (BMP) 9:40 PM [facility] REPOSITORY TYPE CODE TESTS RESULT OUT OF RANGE REFERENCE UNITS LAB L501.0100 74-106 mg/dL High GLU 152 Result Comment: Fasting Glucose result greater than or equal to 126 mg/dL suggests DIABETES MELLITUS per A.D.A. criteria. Please note revised GLUCOSE reference range effective 2017. LAB L501.1000 7-18 mg/dL Normal BUN 9 LAB L501.1100 0.55-1.02 mg/dL Normal CREAT,SERUM 0.89 Result Comment: The validity of the calculated GFR AND GFRAA in patients over 70 years has not been determined. Clinical correlation is essential. LAB L501.1110 >60 mL/min Normal EST GFR 78 Result Comment: Non- GFR Calc LAB L501.1115 >60 mL/min Normal EST GFR - AA 94 Result Comment: GFR Calc LAB L501.1255 ml/min Normal Estimated CRCL 87.43 LAB L501.1300 10-20 RATIO Normal BUN/CRE 10.1 LAB L501.2200 8.5-10 mg/dL Normal .1 CA 8.7 LAB L501.5300 136-14 mmol/L Low 5 NA 135 LAB L501.5600 3.5-5. mmol/L Normal 1 K 3.7 Result Comment: Slight Hemolysis, Result may be falsely increased. LAB L501.5900 98-107 mmol/L Normal CL 103 LAB L501.6100 21.0-32.0 mmol/L Normal CO2 26.0 LAB L501.6200 5-15 Normal 6 GAP Performed By: #### L500.2500 #### [facility] [address] [place], [place], [address] ,SERUM,HCG QUALI. Collected: Status: F Source: YAN 11/24/2017 9:40 PM [facility] REPOSITORY TYPE CODE TESTS RESULT OUT OF REFERENCE UNITS RANGE LAB L700.7000 0-9 Nonpreg Negative Normal HCGSQUAL NEGATIVE LAB L700.6700 =>Qualitative mIU/mL Normal HCG Qual < 1 triggr Performed By: #### L700.6800 #### [facility] [address] [place], [address] PROGRESS Observed: 07/10/2017 Status: COMPLETED Source: [place] 5:42 PM [facility] REPOSITORY HNO ID: [id number] Author: [facility] Service: (none) Author Type: Nurse Practitioner Type: Progress Notes Filed: 07/10/2017 8:51 PM Note Text: Subjective HPI Alanna Yusuf is a 32 year old female who presents with a small laceration to the tip of her left thumb. She was cutting a pepper at home with a knife and the knife cut her thumb. She applied pressure to it. She is unsure when her last tetanus booster was. Review of Systems Constitutional: Negative. Negative for fever. Musculoskeletal: See HPI Skin: See HPI BP 98/70 Pulse 60 Temp 36.1 ?C (97 ?F) (Left Tympanic) Wt 68 kg (150 lb) BMI 23.49 kg/m2 PAST MEDICAL HISTORY Diagnosis Date - Environmental allergies - Psoriasis - Syncope 2003, 2010,2013 Blacked out at work while sitting at desk. PAST SURGICAL HISTORY Procedure Laterality Date - COLONOSCOP W/ OR W/O [facility] SPEC 02/24/2017 biopsies negative - REMOVE TONSILS/ADENOIDS,<12 Y/O 2003 ALLERGIES Amoxicillin; Augmentin [Amoxicillin-Pot Clavulanate]; Azithromycin; Ceclor [Cefaclor] MEDICATIONS diphtheria,pertussis,tetanus (ADACEL, TDAP) 2 Lf-(2.5-5-3-5 mcg)-5Lf/0.5 mL syrg Inject 0.5 mL intramuscularly one time only for 1 dose. triamcinolone acetonide (KENALOG) 0.1 % cream Apply 1 application to affected area three times daily. For rash/psoriasis, Apply sparingly to area for rash/itching. dexamethasone 0.1% 0.1 % ophthalmic solution 1 Drop twice daily as needed (in ear canals for ear itching/skin rash). ibuprofen (MOTRIN) 200 mg tablet Take 200 mg by mouth every 6 hours as needed. MULTIVITAMIN TAB Take one(1) tablet daily. vitamins FAMILY HISTORY Problem Relation Age of Onset - None Mother - Cancer Father 33 Hodgkins - healthy [OTHER] Daughter - healthy [OTHER] Son Social History Substance Use Topics - Smoking status: Never Smoker - Smokeless tobacco: Never Used - Alcohol use No Objective Physical Exam Constitutional: She is well-developed, well-nourished, and in no distress. Musculoskeletal: Hands: Neurological: She is alert. Skin: Skin is warm and dry. No rash noted. No erythema. Nursing note and vitals reviewed. ASSESSMENT/PLAN: 1. Need for tetanus booster - ICD9: V03.7, ICD10: Z23 (primary diagnosis) - DIPHTH,PERTUS(AC)TETANUS(PF)2 LF-(2.5-5-3-5MCG)-5 LF/0.5 ML IM SYRINGE 2. Laceration of left thumb without foreign body without damage to nail, initial encounter - ICD9: 883.0, ICD10: S61.012A - Exofin skin glue and steri strip applied. Wound care instructions reviewed with patient. - Follow-up with your PCP in 3-5 days if symptoms have not improved or sooner if symptoms worsen - Discussed red flags and need for immediate medical evaluation if any occur. - Discussed supportive care treatment with fluids, rest and analgesia. Kavita Xiong CNP CNOV Observed: 07/10/2017 Status: COMPLETED Source: [place] 5:30 PM [facility] REPOSITORY Office Visit (WSTR) ALANNA YUSUF ([id number]) 1985 F Date Time Provider Department 07/10/17 5:30 PM [facility] During your visit today, we recorded the following information about you: Temperature Pulse Blood pressure Weight 97 degrees 60/minute 98/70 68 kg Kavita Xiong CNP 07/10/2017 5:37 PM Signed WOUND CARE INSTRUCTIONS: STERI-STRIP CLOSURE KEEP DRESSING IN PLACE FOR AT LEAST 24 HOURS. AVIOD BATHING FOR 24 HOURS. AVOID SWIMMING FOR 48 HOURS. THE AREA MAY BE LEFT OPEN TO THE AIR AFTER 48 HOURS. A BANDAGE COVERING IS APPROPRIATE TO PREVENT GETTING DIRTY OR TO PROTECT FROM RUBBING BY CLOTHING. A SMALL AMOUNT OF REDNESS ALONG THE WOUND EDGE IS NORMAL. STERI STRIPS WILL GRADUALLY LOOSEN AND PEEL OFF ON THEIR OWN AFTER 3-5 DAYS. WOUND SHOULD BE WELL HEALED BY THAT POINT. CONTACT US IF THERE IS MARKED OR INCREASING REDNESS OR PAIN,OR PUS OR LIQUID DRAINAGE OR IF YOU DEVELOP A FEVER. [facility] Kavita Xiong CNP [address] [place] [address] EMERGENCY AFTER 5 PM:CALL [phone] TO STAN ZAVALA STAFF DEVELOPER Kavita Xiong CNP 07/10/2017 8:51 PM Signed Subjective HPI Alanna Yusuf is a 32 year old female who presents with a small laceration to the tip of her left thumb. She was cutting a pepper at home with a knife and the knife cut her thumb. She applied pressure to it. She is unsure when her last tetanus booster was. Review of Systems Constitutional: Negative. Negative for fever. Musculoskeletal: See HPI Skin: See HPI BP 98/70 Pulse 60 Temp 36.1 ?C (97 ?F) (Left Tympanic) Wt 68 kg (150 lb) BMI 23.49 kg/m2 PAST MEDICAL HISTORY Diagnosis Date - Environmental allergies - Psoriasis - Syncope 2003, 2010,2013 Blacked out at work while sitting at desk. PAST SURGICAL HISTORY Procedure Laterality Date - COLONOSCOP W/ OR W/O [facility] SPEC 02/24/2017 biopsies negative - REMOVE TONSILS/ADENOIDS,ANDlt;11 Y/O 2003 ALLERGIES Amoxicillin; Augmentin [Amoxicillin-Pot Clavulanate]; Azithromycin; Ceclor [Cefaclor] MEDICATIONS diphtheria,pertussis,tetanus (ADACEL, TDAP) 2 Lf-(2.5-5-3-5 mcg)-5Lf/0.5 mL syrg Inject 0.5 mL intramuscularly one time only for 1 dose. triamcinolone acetonide (KENALOG) 0.1 % cream Apply 1 application to affected area three times daily. For rash/psoriasis, Apply sparingly to area for rash/itching. dexamethasone 0.1% 0.1 % ophthalmic solution 1 Drop twice daily as needed (in ear canals for ear itching/skin rash). ibuprofen (MOTRIN) 200 mg tablet Take 200 mg by mouth every 6 hours as needed. MULTIVITAMIN TAB Take one(1) tablet daily. vitamins FAMILY HISTORY Problem Relation Age of Onset - None Mother - Cancer Father 33 Hodgkins - healthy [OTHER] Daughter - healthy [OTHER] Son Social History Substance Use Topics - Smoking status: Never Smoker - Smokeless tobacco: Never Used - Alcohol use No Objective Physical Exam Constitutional: She is well-developed, well-nourished, and in no distress. Musculoskeletal: Hands: Neurological: She is alert. Skin: Skin is warm and dry. No rash noted. No erythema. Nursing note and vitals reviewed. ASSESSMENT/PLAN: 1. Need for tetanus booster - ICD9: V03.7, ICD10: Z23 (primary diagnosis) - DIPHTH,PERTUS(AC)TETANUS(PF)2 LF-(2.5-5-3-5MCG)-5 LF/0.5 ML IM SYRINGE 2. Laceration of left thumb without foreign body without damage to nail, initial encounter - ICD9: 883.0, ICD10: S61.012A - Exofin skin glue and steri strip applied. Wound care instructions reviewed with patient. - Follow-up with your PCP in 3-5 days if symptoms have not improved or sooner if symptoms worsen - Discussed red flags and need for immediate medical evaluation if any occur. - Discussed supportive care treatment with fluids, rest and analgesia. Kavita Xiong CNP Referring Provider: SELF [200] Allergies As of Date: 07/10/2017 Noted Allergy Reaction AMOXICILLIN 04/30/2005 4 - Hives AUGMENTIN (AMOXICILLIN-POT CLAVUL*04/30/2005 4 - Hives AZITHROMYCIN 07/02/2014 6 - Diarrhea Comments: GENERIC ONLY CECLOR (CEFACLOR) 05/02/2005 4 - Hives Date Reviewed: 07/10/2017 Reviewed by: Kavita Valenzuela) Tyrese - Fully Assessed Reason for Visit: Acute Visit [896] Cmt: Left hand cut Primary Visit Diagnosis:Need for tetanus booster [Z23] Other Visit Diagnosis:Laceration of left thumb without foreign body without damage to nail, initial encounter [S61.012A] Order(s):TDAP VACCINE AGE 7+ IM [[id number]] Order #: [id number] Prescriptions as of 07/10/2017 Sig: IBUPROFEN 200 MG TABLET Take 200 mg by mouth every 6 * MULTIVITAMIN TABLET Take one(1) tablet daily. Pr* Problem List As Of Date 07/10/2017 Noted Resolved Abdominal pain, unspecified site [R10.9] INVALID FOR*04/30/2012 Bright red rectal bleeding [K62.5] INVALID FOR* More... Altered bowel habits [R19.4] INVALID FOR* More... Gluten intolerance [K90.0] INVALID FOR* Thyromegaly [E01.0] INVALID FOR* Well adult exam [Z00.00] INVALID FOR* Other instructions from your clinician: WOUND CARE INSTRUCTIONS: STERI-STRIP CLOSURE KEEP DRESSING IN PLACE FOR AT LEAST 24 HOURS. AVIOD BATHING FOR 24 HOURS. AVOID SWIMMING FOR 48 HOURS. THE AREA MAY BE LEFT OPEN TO THE AIR AFTER 48 HOURS. A BANDAGE COVERING IS APPROPRIATE TO PREVENT GETTING DIRTY OR TO PROTECT FROM RUBBING BY CLOTHING. A SMALL AMOUNT OF REDNESS ALONG THE WOUND EDGE IS NORMAL. STERI STRIPS WILL GRADUALLY LOOSEN AND PEEL OFF ON THEIR OWN AFTER 3-5 DAYS. WOUND SHOULD BE WELL HEALED BY THAT POINT. CONTACT US IF THERE IS MARKED OR INCREASING REDNESS OR PAIN,OR PUS OR LIQUID DRAINAGE OR IF YOU DEVELOP A FEVER. [facility] Kavita Xiong, SCHOOL GUIDANCE COUNSELOR [address] [id number] EMERGENCY AFTER 5 PM:CALL [phone] TO PAGE STAFF DEVELOPER Prescriptions ordered this encounter Disp Refills Start End DIPHTH,PERTUS(AC)TETANUS(PF)2 LF-(2.* 1 Ea* 0 07/10/2017 07/10/2017 Class: In Office Route: INTRAMUSCULA Sig: Inject 0.5 mL intramuscularly one time only for 1 dose. Medications Discontinued During This Encounter triamcinolone acetonide (KENALOG) 0.* 60 g 3 03/07/2017 07/10/2017 Route: TOPICAL Sig: Apply 1 application to affected area three times daily. For rash/psoriasis, Apply sparingly to area for rash/itching. Disc: Reason for discontinue is not on file. dexamethasone 0.1% 0.1 % ophthalmic * 5 mL 3 03/07/2017 07/10/2017 Route: OTHER Si Drop twice daily as needed (in ear canals for ear itching/skin rash). Disc: Reason for discontinue is not on file. diphtheria,pertussis,tetanus (ADACEL* 1 Ea* 0 07/10/2017 07/10/2017 Class: In Office Route: INTRAMUSCULAR Sig: Inject 0.5 mL intramuscularly one time only for 1 dose. Disc: Reason for discontinue is not on file. Encounter Status:Closed by KAVITA XIONG on 07/10/17 ALLERGIES ALLERGIES DATE TYPE / CODE NAME / CODE REACTION SEVERITY SOURCE 11/24/2017 Drug amoxicillin Hives Unknown [facility] Allergy/416 trihydrate/[id number] Community [id number]([facility] 07(RXNORM) [facility] ED CT) Repository 11/24/2017 Drug potassium Hives Unknown [place] Allergy/416 clavulanate/M643233 Community 738746([facility] 809[facility] ED CT) Repository 11/24/2017 Drug cefaclor/[id number] Hives Unknown Yan Allergy/416 (RXNORM) Community 450916([facility] ED CT) Repository 11/24/2017 Drug azithromycin/N75201 Diarrhea Unknown [facility] Allergy/416 3635(RXNORM) Community 226684([facility] ED CT) Repository 11/24/2017 Drug amoxicillin/B403441 Hives Unknown [place] Allergy/416 675(RXNORM) Community 889364([facility] ED CT) Repository 07/02/2014 DRUG AZITHROMYCIN DIARRHEA [facility] INGREDI/[address] [place] 117810(SNOM Repository ED CT) 05/02/2005 DRUG CEFACLOR HIVES [facility] INGREDI/[address] [place] 920431(SNOM Repository ED CT) 04/30/2005 DRUG AMOXICILLIN HIVES [facility] INGREDI/[address] [place] 867830(SNOM Repository ED CT) 04/30/2005 DRUG/606227 [facility] 003(SNOMED CLAVULANATE [place]) Repository ENCOUNTERS ENCOUNTERS ADMIT/DISCHARGE ACCOUNT ADMITTING ENCOUNTER LOCATION SOURCE NUMBER CLASS 04/17/2018 [id number] [facility] ing:MASS Repository 03/31/2018 [id number] Ambulatory [facility] ing:LABSPEC Repository 03/25/2018/03/27/20 [id number] Ambulatory [address] [place] Repository 02/19/2018/02/21/20 [id number] Ambulatory [address] [place] Repository 01/31/2018/02/03/20 [id number] Ambulatory [address] Repository 01/29/2018 [id number] Ambulatory [facility] ing:LABSPEC Repository 11/24/2017/11/25/19 [id number] Emergency [address] ing:ED Repository 07/10/2017/07/12/19 [id number] Ambulatory [address] Repository PAYERS PAYERS ENCOUNTER GUARANTOR PAYER SUBSCRIBER SOURCE 04/17/2018 ALANNA Cohen Primary NOT GIVENUNK [facility] [id number] Insurance:SELF PAY [place], [place] Number: Effective Repository [phone]: (330) Date:2015-05-05 [id number] () 03/31/2018 ALANNA Cohen Primary Spike B Yan [id number] Insurance:ANTHEMPolic PyersDOB: Community [place] Number: [id number] [id number] Repository 04574Hjl: (330) jaime Date:1902-90-08IP [phone] () [address] [place] [address] 78800LN: 03/31/2018 Secondary NOT GIVENUNK [facility] Insurance:SELF PAY [facility] Number: Effective Repository Date:2018-03-31 01/29/2018 ALANNA Cohen Primary Spike B [place] [id number] Insurance:ANTHEMPolic PyersDOB: Community [place] Number: [id number] [id number] Repository [address]Lan: (330) jaime Date:6044-73-85FS [phone] () [address] [place] [address] 80209ZT: 01/29/2018 Secondary NOT GIVENUNK Yan Insurance:SELF PAY [facility] Number: Effective Repository Date:2018-01-29 11/24/2017 ALANNA Cohen Primary Spike B [place] [id number] Insurance:ANTHEMPolic PyersDOB: Community [place] Number: [id number] [id number] Repository [address]63[address]Kql: (330) jaime Date:0411-30-57BT [phone] () [address] [address]RO: 11/24/2017 Secondary NOT GIVENUNK [place] Insurance:SELF PAY [facility]: Effective Repository Date:2017-11-24
== END ==
PROVIDERS: Visit Provider Obstetrics & Gynecology
DX: Z12.4 Encounter for screening for malignant neoplasm of cervix (principal)
CPT/HCPCS: 87624; 88175; G0145

== ENCOUNTER → 2018-09-23 09:50 | Outpatient (CLI) | payer BC, SELFPAY ==
--- NOTE | 2018-09-23 13:05 | NEURO ---
NCS and/or EMG Patient Report Ordering Doctor: Sina Bailey DATE OF SERVICE: 09/23/18 Alanna Yusuf is a 33-year-old female presents for electrodiagnostic testing of the left upper limb. She reports that pain began in January 2018 following a flu shot in the left upper arm. She reports chronic left shoulder pain since that time, which radiates down the left arm. Electrodiagnostic findings: Left median motor nerve demonstrates normal distal latency amplitude and conduction velocity. Normal left ulnar motor response. Normal median and ulnar F-wave. Sensory responses are within normal limits. Needle EMG testing shows no evidence of denervation in any muscle any muscles tested in the left upper limb. Motor unit action potentials are of normal amplitude and duration. Electrodiagnostic impression: This is a normal electrodiagnostic study of the left upper limb. There is no electrodiagnostic evidence for cervical radiculopathy or peripheral neuropathy. If there are any further questions, please do not hesitate to contact me.
== END ==
PROVIDERS: Family Provider Student in an Organized Health Care Education/Training Program; PCP Student in an Organized Health Care Education/Training Program; Referring Provider Orthopaedic Surgery; Visit Provider Orthopaedic Surgery
DX: M65.812 Other synovitis and tenosynovitis, left shoulder (principal); M54.2 Cervicalgia; R20.2 Paresthesia of skin
CPT/HCPCS: 95886; 95910

== ENCOUNTER → 2020-10-03 | Outpatient (CLI) | payer OTHER, SELFPAY | END | disposition home or self-care (01) | LOC: LABSPEC 16:15 | PROVIDERS: PCP Family Medicine; Referring Provider Otolaryngology Otolaryngology/Facial Plastic Surgery; Visit Provider Otolaryngology Otolaryngology/Facial Plastic Surgery | DX: J02.9 Acute pharyngitis, unspecified (principal) | CPT/HCPCS: 87070 ==

== ENCOUNTER 2021-05-14 15:09 | Outpatient (CLI) | payer OTHER, SELFPAY | END 2021-05-14 23:59 | disposition short-term general hospital (02) | LOC: LABSPEC 15:10 | PROVIDERS: PCP Family Medicine; Visit Provider Otolaryngology Otolaryngology/Facial Plastic Surgery | DX: J02.9 Acute pharyngitis, unspecified (principal) | CPT/HCPCS: 87070 ==